=== PATIENT | male | born 1975 | race Caucasian/White ===

== ENCOUNTER → 2017-07-23 | Outpatient (CLI) | payer BC ==
[~2017-07-23] MED LIST: no
--- NOTE | 2017-07-23 08:06 | EKG ---
FACILITY: [facility] PATIENT NAME: JEFE TAYLOR : [id number] MR: [id number]: [id number] EXAM DATE: ORDERING PHYSICIAN: GRICEL OTHER TECHNOLOGIST: CHRIS Bryan Reason : DISTURBANCE OF CONCI Blood Pressure : / mmHG Vent. Rate : 073 BPM Atrial Rate : 073 BPM P-R Int : 178 ms QRS Dur : 094 ms QT Int : 392 ms P-R-T Axes : 070 -30 051 degrees QTc Int : 431 ms Normal sinus rhythm Left axis deviation No ST-T abnormalities No previous ECGs available Confirmed by FARHAT PEACOCK ([id number]) on 07/23/2017 1:12:35 PM Referred By: MIRTHA Confirmed By:FARHAT PEACOCK
== END ==
LOC: RESP 06:45
DX: R41.82 Altered mental status, unspecified (principal)
CPT/HCPCS: 93005

== ENCOUNTER → 2017-10-06 | Outpatient (REF) | LOC: AUD 10:15 | PROVIDERS: ATTEND Nurse Practitioner Family | DX: Z01.10 Encounter for examination of ears and hearing without abnormal findings (principal) | CPT/HCPCS: 92552 ==